=== PATIENT | male | born 1985 | race Hispanic/Latino ===

== ENCOUNTER 2021-08-18 04:25 | Inpatient (IN) | payer BC, OTHER ==
--- OUTSIDE RECORDS SUMMARY | 2021-08-18 04:28 | XMS REPORT | Continuity of Care Document ---
:1985 Author Organization [facility] t Address [address] [place] [address] Care Team Providers Name Role Phone Zuniga_F Attending Clinician Unavailable Zuniga_F Admitting Clinician Unavailable Payers Payer Name Policy Type Policy Number Effective Date Expiration Date S ource [place] [id number] 2018 00:00:00 [place] Problems Condition Condition Condition Status Onset Resolution Last Treating Co mments Source Name Details Category Date Date Treatment Clinician Date Decreased Decreased Problem Active [facility] testostero Testostero 3-19 da ne level ne Level 00:00: Medica l 00 Group Allergies, Adverse Reactions, Alerts This patient has no known allergies or adverse reactions. Social History Smoking Status Start Date Stop Date Source Never Smoker [facility] Medications Ordered Filled Start Stop Current Ordering Indication Dosage Frequency Signature Comments Components Source Medication Medication Date Date Medication? Clinician (SIG) Name Name clindamycin clindamycin No clindamyci [facility] phosphate 1 phosphate 1 n d a % topical % topical phosphate Medical solution solution 1 % Group APPLY A APPLY A topical THIN LAYER THIN LAYER solution TO THE TO THE APPLY A AFFECTED AFFECTED THIN LAYER AREA(S) BY AREA(S) BY TO THE TOPICAL TOPICAL AFFECTED ROUTE 2 ROUTE 2 AREA(S) BY TIMES PER TIMES PER TOPICAL DAY DAY ROUTE 2 TIMES PER DAY lisinopril lisinopril No lisinopril [facility] 10 mg 10 mg 10 mg da tablet TAKE tablet TAKE tablet Medical 1 TABLET BY 1 TABLET BY TAKE 1 Group MOUTH EVERY MOUTH EVERY TABLET BY DAY DAY MOUTH EVERY DAY montelukast montelukast No montelukas [facility] 10 mg 10 mg t 10 mg da tablet Take tablet Take tablet Medical 1 tablet 1 tablet Take 1 Group every day every day tablet by oral by oral every day route for route for by oral 30 days. 30 days. route for 30 days. testosteron testosteron No testostero [place] e cypionate e cypionate ne d a 200 mg/mL 200 mg/mL cypionate Medical intramuscul intramuscul 200 mg/mL Group ar oil ar oil intramuscu inject 2 ml inject 2 ml lar oil Intramuscul Intramuscul inject 2 ar Once ar Once ml Weekly Weekly Intramuscu lar Once Weekly Tylenol-Cod Tylenol-Cod No 1 Q6H Tylenol-Co [place] eine #3 300 eine #3 300 deine #3 da mg-30 mg mg-30 mg 300 mg-30 Me dical tablet Take tablet Take mg tablet Group 1 tablet 1 tablet Take 1 every 6 every 6 tablet hours by hours by every 6 oral route oral route hours by as needed as needed oral route for pain. for pain. as needed for pain. Ultram 50 Ultram 50 No 1 Q6H Ultram 50 [facility] mg tablet mg tablet mg tablet da Take 1 Take 1 Take 1 Medical tablet tablet tablet Group every 6 every 6 every 6 hours by hours by hours by oral route oral route oral route as needed as needed as needed for pain. for pain. for pain. Zofran 4 mg Zofran 4 mg No 1 Q6H Zofran 4 [facility] tablet Take tablet Take mg tablet da 1 tablet 1 tablet Take 1 Medic al every 6 every 6 tablet Group hours by hours by every 6 oral route oral route hours by as needed as needed oral route for nausea for nausea as needed and and for nausea vomiting. vomiting. and vomiting. Immunizations Ordered Immunization Filled Immunization Date Status Commen ts Source Name Name influenza, influenza, 2020-07-07 Completed [facility] injectable, injectable, 12:02:00 [facility] p quadrivalent, quadrivalent, preservative free preservative free influenza, influenza, 2019-10-01 Completed [facility] injectable, injectable, 15:58:14 [facility] quadrivalent, quadrivalent, preservative free preservative free Vital Signs Vital Name Observation Time Observation Value Comments Source BP Diastolic 2020-07-20 00:00:00 80 [facility]Hg[facility] Height 2020-07-20 00:00:00 70 [in_i] [facility] BMI (Body Mass 2020-07-20 00:00:00 32.4 kg/m2 [facility] 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 BP Systolic 2020-07-20 00:00:00 136 mm[Hg] [facility] Body Weight 2020-07-20 00:00:00 226 [lb_av] [facility] BP Diastolic 2020-07-07 00:00:00 90 mm[Hg] [facility] Height 2020-07-07 00:00:00 70 [in_i] [facility] BMI (Body Mass 2020-07-07 00:00:00 32.5 kg/m2 [facility] 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 BP Systolic 2020-07-07 00:00:00 144 mm[Hg] [facility] Body Weight 2020-07-07 00:00:00 3621 [oz_av] [facility] BP Diastolic 2019-10-01 00:00:00 78 mm[Hg] [facility] Height 2019-10-01 00:00:00 70 [in_i] [facility] BMI (Body Mass 2019-10-01 00:00:00 32.6 kg/m2 [facility] Medical Index) Group BP Systolic 2019-10-01 00:00:00 141 mm[Hg] [facility] Body Weight 2019-10-01 00:00:00 3638 [oz_av] [facility] BP Diastolic 2018-10-21 00:00:00 93 mm[Hg] [facility] Height 2018-10-21 00:00:00 70 [in_i] [facility] BMI (Body Mass 2018-10-21 00:00:00 31.7 kg/m2 [facility] Medical Index) Group BP Systolic 2018-10-21 00:00:00 143 mm[Hg] [facility] Body Weight 2018-10-21 00:00:00 3539 [oz_av] [facility] Procedures Procedure Date / Time Performed Performing Clinician Sourc e XR, chest 2019-10-01 00:00:00 [facility] 2010-09-17 00:00:00 [facility] K[facility] 2002-09-17 00:00:00 [facility] Encounters Start End Encounter Admission Attending Care Care Encounter Source Date/Time Date/Time Type Type Clinicians Facility Department ID 2020-08-04 2020-08-04 Outpatient [facility]F [facility] [id number] [facility] 02:21:00 02:21:00 [facility] 2020-07-21 2020-07-21 Outpatient [facility]F [facility] [id number] [facility] 11:48:00 11:48:00 [facility] 2020-07-20 2020-07-20 Outpatient [facility]_F [facility] [id number] [facility] 10:55:00 10:55:00 [facility] 2020-07-20 2020-07-20 Felipe [facility] [place] - [id number] [facility] 00:00:00 00:00:00 Jono Rodriguez MD: [facility] [address], [place] [address] , Ph. [phone] 2020-07-07 2020-07-07 Outpatient [facility]_F [facility] [id number] [place] 11:00:00 11:00:00 021 [facility] 2020-07-07 2020-07-07 Outpatient Zuniga_F [facility] [id number] [place] 11:00:00 11:00:00 022 [facility] 2020-07-07 2020-07-07 [facility] [place] - [id number] [facility] 00:00:00 00:00:00 [facility] : [address] [place] [address] Family [address], [place] [address] , Ph. 2020-07-01 2020-07-01 Outpatient Z[facility]_F [facility] [id number] [place] 06:45:00 06:45:00 015 [facility] 2019-10-01 2019-10-01 Outpatient Zuniga_F [facility] MMG [id number] [facility] 08:12:00 08:12:00 115 [facility] 2019-10-01 2019-10-01 [facility] [place] - [id number] [facility] 00:00:00 00:00:00 [facility] MD: [address] [facility] Family [address], [place] [address] , Ph. 2018-10-21 2018-10-21 Cap[facility] [place] - [id number] [facility] 00:00:00 00:00:00 N[facility] MD: [address] [facility], [facility] [address], [place] [address] , Ph. Results Test Description Test Time Test Comments Results Result Comments Source CBC W Auto Differential panel - Blood 2020-07-07 09:08:00 Test Item Value Reference Range Interpretation Comme nts white blood count (test code = white blood count) 6.5 K/uL 4.0- 12.3 red blood count (test code = red blood count) 5.27 M/uL 3.80-5.8 0 hemoglobin (test code = hemoglobin) 15.4 g/dL 11.7-17.2 hematocrit (test code = hematocrit) 45.9 % 35.0-51.0 MCV [Entitic volume] (test code = 88146-2) 87.1 fL 83-100 mean corpuscular hemoglobin (test code = mean corpuscular 29.2 pg 26.8-33.4 hemoglobin) mean corpuscular HGB conc (test code = mean corpuscular HGB 33.6 g/ dL 30-35 conc) red cell distribution width (test code = red cell 13.2 % 12.0 -14.0 distribution width) platelet count (test code = platelet count) 349 K/uL 175-450 mean platelet volume (test code = mean platelet volume) 9.6 fL 9.4-12.6 Segmented neutrophils/100 leukocytes in Blood (test code = 61.6 % 44.7-82.4 53793-3) Immature granulocytes [#/volume] in Blood (test code = 0.0 K/uL 0.0-0.03 82174-4) lymphocyte% (test code = lymphocyte%) 24.8 % 10.0-50.0 mono % (test code = mono %) 10.8 % 3.9-13.4 eos % (test code = eos %) 1.8 % 0.0-6.4 Basophils/100 leukocytes in Unspecified specimen (test code 0.8 % 0.2-1.2 = 94322-3) Band form neutrophils [#/volume] in Blood (test code = 4.01 K/uL 1.78-5.38 32305-0) Lymphocytes [#/volume] in Unspecified specimen by Automated 1.6 K/u L 1.32-3.57 count (test code = 85834-5) mono # (test code = mono #) 0.70 K/uL 0.30-0.82 eos # (test code = eos #) 0.12 K/uL 0.04-0.54 basophil # (test code = basophil #) 0.05 K/uL 0.01-0.08 NRBC% (test code = NRBC%) 0 /100 WBC 0-0.2 NRBC# (test code = NRBC#) 0 K/uL [facility], method unspecified - [id number] 09:08:00NeutrophilsBandLymphocyteAtypical LymphMonocyteBasophilPlatelet EstimatePlatelet MorphologyMacrocytosisMaWalthall County General HospitalComprehensive metabolic 2000 panel - Serum or [id number] 09:08:00 Test Item Value Reference Range Interpretation Comments glucose (test code = glucose) 91 mg/dL 74-106 Urea nitrogen [Mass/volume] in 22 mg/dL 6-20 H Serum or Plasma (test code = 3094-0) osmolality calculated,serum (test 281 mOsm/kg 280-300 code = osmolality calculated,serum) creatinine (test code = 1.3 mg/dL 0.70-1.20 H creatinine) glomerular filtration rate (test >60.00 code = glomerular filtration rate) Urea nitrogen/Creatinine [Mass 16.9 12-20 Ratio] in Serum or Plasma (test code = 3097-3) sodium level (test code = sodium 139 mmol/L 135-145 level) Potassium [Moles/volume] in Body 3.8 mmol/L 3.5-5.2 fluid (test code = 2821-7) chloride level (test code = 102 mmol/L 98-108 chloride level) CO2 (test code = CO2) 25 mmol/L 21-32 anion gap (test code = anion gap) 15.8 mEq/L 12-20 calcium level (test code = 9.7 mg/dL 8.6-10.0 calcium level) total protein (test code = total 7.6 g/dL 6.6-8.7 protein) albumin (test code = albumin) 4.6 g/dL 3.5-5.2 globulin (test code = globulin) 3.0 gm/dL A/G ratio (test code = A/G ratio) 1.5 >1.0 bilirubin,total (test code = 0.9 mg/dL 0.0-1.2 bilirubin,total) AST/SGOT (test code = AST/SGOT) 25 U/L 15-40 Alanine aminotransferase 32 U/L 0-41 [Enzymatic activity/volume] in Serum or Plasma (test code = 1742-6) Alkaline phosphatase [Enzymatic 72 U/L 40-130 activity/volume] in Serum or Plasma (test code = 6768-6) [facility] - Serum or [id number] 09:08:00 Test Item Value Reference Range Interpretation Comments cholesterol level (test code = 218 mg/dL 150-200 H cholesterol level) triglycerides level (test code = 72 mg/dL <150 triglycerides level) HDL cholesterol (test code = HDL 52 mg/dL >55 L cholesterol) LDL cholesterol direct (test code = 156 mg/dL <100 H LDL cholesterol direct) cholesterol risk ratio (test code = 4.192 cholesterol risk ratio) [facility]rotropin [Units/volume] in Serum or [id number] 09:08:00 Test Item Value Reference Range Interpretation Comments Thyrotropin [Units/volume] in 1.99 uIU/mL 0.36-3.74 Serum or Plasma (test code = 3016-3) [facility] [Mass/volume] in Serum or [id number] 09:08:00 Test Item Value Reference Range Interpretation Comments testosterone (test code = 125.7 NG/dL 348-[address]7 L testosterone) [facility]
[2021-08-18] MEDS ORDERED: NA CHLORIDE 0.9% 2,000 ML ONE (04:46)
[2021-08-18 04:55] LABS: Absolute Lymphocytes (CBC) 1.1 K/uL (0.7-4.9); Basophils % 0.6 % (0-1.3); Hematocrit 58.8 % (39.6-49.0); Lymphocytes % 9.6 % (15.3-44.8); MPV 7.9 fL (7.6-11.3); RBC Red Blood Cell Count 6.74 M/uL (4.33-5.43)
[2021-08-18 05:25] LABS: Bilirubin Direct 0.2 mg/dL (0-0.2); Bilirubin Total 0.8 mg/dL (0.2-1.0); Potassium 3.5 mmol/L (3.5-5.1); Protein, Total 8.6 g/dL (6.4-8.2)
[2021-08-18] MEDS ORDERED: NA CHLORIDE 0.9% 1,000 ML ONE (05:47)
[2021-08-18] MEDS ORDERED: ONDANSETRON 4 MG/2 ML VIAL ONE (05:47)
[2021-08-18 06:18] LABS: Troponin (Emerg Dept Use Only) 0.1 ng/mL (0.0-0.045)
--- NOTE | 2021-08-18 06:40 | ER ---
Nurse's Notes [facility] Name: Reggie Anton Age: 36 yrs Sex: Male : 1985 Arrival Date: 08/18/2021 Time: 04:31 Bed 2 Private MD: Diagnosis: Persistent diarrhea. Dehydration. Elevated Troponin Presentation: 08/18 04:51 Chief complaint: Patient states: Diarrhea that began at 1200 yesterday, generalized lp1 weakness, abdominal distention and epigastric pain. Coronavirus screen: diarrhea. Ebola Screen: No symptoms or risks identified at this time. Initial Sepsis Screen: Does the patient meet any 2 criteria? No. Patient's initial sepsis screen is negative. Does the patient have a suspected source of infection? No. Patient's initial sepsis screen is negative. Risk Assessment: Do you want to hurt yourself or someone else? Patient reports no desire to harm self or others. Onset of symptoms was August 17, 2021 at 12:00. 04:51 Method Of Arrival: Ambulatory lp1 04:51 Acuity: KAMRAN 2 lp1 Triage Assessment: 04:54 General: Appears ill, Behavior is quiet. Derm: Skin is intact, Skin is diaphoretic, lp1 Skin is pale. Historical: - Allergies: 04:53 No Known Allergies; lp1 - Home Meds: 04:53 Lisinopril Oral [Active]; lp1 - PMHx: 04:53 Hypertensive disorder; lp1 - PSHx: 04:53 ACL repair; lp1 - Immunization history:: Adult Immunizations up to date. - Social history:: Smoking status: Patient denies any tobacco usage or history of. Screenin:54 Abuse screen: Denies threats or abuse. Denies injuries from another. Nutritional lp1 screening: No deficits noted. Tuberculosis screening: No symptoms or risk factors identified. Fall Risk Total Brooks Fall Scale indicates Low Risk Score (25-44 pts). Fall prevention measures have been instituted. Family Present and informed to notify staff if they need to leave bedside. Assessment: 04:35 General: Appears distressed, uncomfortable, Behavior is cooperative, anxious. Pain: cc4 Complains of pain in epigastric area Pain radiates to abdomen Pain currently is 4 out of 10 on a pain scale. Quality of pain is described as crampy. Neuro: No deficits noted. Level of Consciousness is awake, alert, obeys commands, Oriented to person, place, time, situation. Cardiovascular: Heart tones S1 S2 Rhythm is sinus tachycardia. Respiratory: Airway is patent Respiratory effort is even, unlabored, Respiratory pattern is regular, symmetrical, tachypnea Breath sounds are clear bilaterally. GI: Abdomen is non-distended, Bowel sounds present X 4 quads. hyperactive in right upper quadrant, left upper quadrant, right lower quadrant and left lower quadrant. : No deficits noted. EENT: No deficits noted. Derm: No deficits noted. Skin is intact, is healthy with good turgor. Musculoskeletal: Reports weakness in head, neck, chest, abdomen, pelvis, right arm, left arm, left hand, right leg, right foot, left leg and left foot c/o generalized weakness. 04:40 Reassessment: # 18 g angiocath inserted right AC x 1 attempt with no difficulty \T\ blood cc4 drawn \T\ sent to lab, [facility]. [facility]. . 05:15 Reassessment: # 18 g angiocath inserted left AC x 1 attempt with blood drawn \T\ sent to cc4 lab, [facility]. well; swabbed for covid \T\ sent to lab. 05:45 Reassessment: No changes from previously documented assessment. Assisted up to [facility] cc4 with approx 100 ml Emmanuel liquid stool noted in nun's cap; stool specimen collected \T\ sent to lab; IV NS patent right AC saline lock \T\ bolus rate with no difficulty. 07:00 Reassessment: No changes from previously documented assessment. Patient and/or family ll1 updated on plan of care and expected duration. Pain level reassessed. Patient is alert, oriented x 3, equal unlabored respirations, skin warm/dry/pink. 08:00 Reassessment: No changes from previously documented assessment. Patient and/or family ll1 updated on plan of care and expected duration. Pain level reassessed. Patient is alert, oriented x 3, equal unlabored respirations, skin warm/dry/pink. 08:07 GI: Abdomen is non-distended, Bowel sounds present X 4 quads. Abd is soft Abdomen is ll1 tender to palpation Reports diarrhea, nausea. 09:00 Reassessment: No changes from previously documented assessment. Patient and/or family ll1 updated on plan of care and expected duration. Pain level reassessed. Patient is alert, oriented x 3, equal unlabored respirations, skin warm/dry/pink. 10:00 Reassessment: No changes from previously documented assessment. Patient and/or family ll1 updated on plan of care and expected duration. Pain level reassessed. Patient is alert, oriented x 3, equal unlabored respirations, skin warm/dry/pink. Vital Signs: 04:35 BP 103 / 86; Pulse 144; Resp 23; Temp 99.1; Pulse Ox 98% on R/A; cc4 04:51 BP 103 / 86; Pulse 148; Resp 20; Temp 99.1(O); Pulse Ox 97% on R/A; Weight 106.59 kg; lp1 Height 5 ft. 10 in. (177.80 cm); Pain 5/10; 05:00 BP 111 / 72; Pulse 122; Resp 24 S; Pulse Ox 98% on R/A; cc4 05:30 BP 116 / 83; Pulse 112; Resp 23 S; Pulse Ox 99% on R/A; cc4 06:00 BP 117 / 82; Pulse 131; Resp 23 S; Pulse Ox 98% on R/A; cc4 06:30 BP 119 / 66; Pulse 129; Resp 21 S; Pulse Ox 99% on R/A; cc4 06:46 BP 111 / 60; Pulse 125; Resp 22 S; Pulse Ox 98% on R/A; cc4 07:27 Pulse 115; ll1 07:34 BP 103 / 65; Pulse 113; Resp 22; Temp 99.3; Pulse Ox 96% on R/A; ll1 09:58 BP 101 / 77; Pulse 103; Resp 21; Pulse Ox 98% on R/A; ll1 04:51 Body Mass Index 33.72 (106.59 kg, 177.80 cm) lp1 ED Course: 04:31 Patient arrived in ED. bp1 04:48 Michael Sanchez MD is Attending Physician. pkl 04:53 Triage completed. lp1 04:53 Arm band placed on right wrist. lp1 04:54 Patient has correct armband on for positive identification. Placed in gown. Bed in low lp1 position. electric utility lineworker on. Pulse ox on. NIBP on. 04:55 Inserted saline lock: 18 gauge in right antecubital area, using aseptic technique. lp1 Blood collected. By HANNAH Yang. 04:57 D-Dimer Sent. bb 04:58 Basic Metabolic Panel Sent. bb 04:58 CBC with Diff Sent. bb 04:58 Hepatic Function Sent. bb 04:58 Lipase Sent. bb 04:58 No provider procedures requiring assistance completed. bb 05:35 XRAY CXR (1 view) In Process Unspecified. EDMS 06:01 Veda Elaine, RN is Primary Nurse. cc4 06:02 Troponin (Emerg Dept Use Only) Sent. cc4 06:02 Manual Differential Sent. cc4 06:03 Glucose, Ancillary Testing Sent. cc4 06:03 Stool Culture Sent. cc4 06:03 D-Dimer Sent. cc4 06:03 Blood Culture Adult (2) Sent. cc4 06:03 Lactate Sent. cc4 06:03 Lipase Sent. cc4 06:03 Hepatic Function Sent. cc4 06:03 CBC with Diff Sent. cc4 06:03 Basic Metabolic Panel Sent. cc4 06:37 Jessica Mccallum MD is Hospitalizing Provider. pkl 06:57 Abdomen Sent. cc4 07:16 Notified the Hospitalist of a critical lab result(s), D dimer 2534. ll1 10:02 Patient admitted, IV remains in place. ll1 Administered Medications: 04:51 Drug: NS 0.9% 1000 ml Route: IV; Rate: 1 bolus; Site: right antecubital; lp1 10:02 Follow up: Response: No adverse reaction; IV Status: Completed infusion; IV Intake: ll1 1000ml 06:04 Drug: Zofran (Ondansetron) 4 mg Route: IVP; Site: right antecubital; cc4 10:03 Follow up: Response: No adverse reaction ll1 06:15 Drug: NS 0.9% 1000 ml Route: IV; Rate: 1 bolus; Site: right antecubital; cc4 09:41 Follow up: Response: No adverse reaction; IV Status: Completed infusion; IV Intake: ll1 1000ml Intake: 09:41 IV: 1000ml; Total: 1000ml. ll1 10:02 IV: 1000ml; Total: 2000ml. ll1 Outcome: 06:39 Decision to Hospitalize by Provider. pkl 10:01 Admitted to Med/surg accompanied by tech, via wheelchair, with chart, Report called to ll Giulia D. 10:01 Condition: stable 10:01 Instructed on the need for admit. 10:19 Patient left the ED. ll1 Signatures: Dispatcher [employer] EDMS Michael Sanchez MD MD pkRegina Bullock RN RN bb Kathy Flood RN RN lp1 Peri Donald RN RN ll1 Slime Powell Christie RN RN cc4 Corrections: (The following items were deleted from the chart) 04:55 04:51 BP 103 / 86; Pulse 148bpm; Resp 20bpm; Pulse Ox 97% RA; 106.59 kg; Height 5 ft. lp1 10 in.; BMI: 33.7; Pain 5/10; lp1 05:55 04:57 TROPONIN (EMERG DEPT USE ONLY)+C.LAB.RHEAZ drawn and sent. randi EDMS 06:46 06:03 To radiology for Abdomen Pelvis W Con+CT.RAD.BRZ. cc4 EDMS
--- NOTE | 2021-08-18 06:40 | EDPHYS ---
Physician Documentation [facility] Name: Reggei Anton Age: 36 yrs Sex: Male : 1985 Arrival Date: 08/18/2021 Time: 04:31 Bed 2 Private MD: ED Physician Michael Sanchez HPI: 08/18 05:16 This 36 yrs old Male presents to ER via Ambulatory with complaints of pkl Diarrhea, Nausea, Weakness. 05:16 The patient presents to the emergency department with nausea, that is mild, diarrhea, pkl that is intermittent, 8 times since the onset of symptoms. Onset: The symptoms/episode began/occurred yesterday. Possible causes: unknown. Associated signs and symptoms: Pertinent positives: abdominal pain, abdominal distention. Historical: - Allergies: 04:53 No Known Allergies; lp1 - Home Meds: 04:53 Lisinopril Oral [Active]; lp1 - PMHx: 04:53 Hypertensive disorder; lp1 - PSHx: 04:53 ACL repair; lp1 - Immunization history:: Adult Immunizations up to date. - Social history:: Smoking status: Patient denies any tobacco usage or history of. ROS: 05:16 Eyes: Negative for injury, pain, redness, and discharge, ENT: Negative for injury, pkl pain, and discharge, Neck: Negative for injury, pain, and swelling, Cardiovascular: Negative for chest pain, palpitations, and edema. 05:16 Respiratory: Positive for shortness of breath. 05:16 Abdomen/GI: Positive for abdominal pain, nausea, diarrhea, of the epigastric area. 05:16 Back: Negative for acute changes. 05:16 : Negative for urinary symptoms. 05:16 MS/extremity: Negative for acute changes. 05:16 Skin: Negative for rash. 05:16 Neuro: Negative for altered mental status, loss of consciousness. Exam: 05:16 Head/Face: Normocephalic, atraumatic. Eyes: Pupils equal round and reactive to light, pkl extra-ocular motions intact. Lids and lashes normal. Conjunctiva and sclera are non-icteric and not injected. Cornea within normal limits. Periorbital areas with no swelling, redness, or edema. ENT: Nares patent. No nasal discharge, no septal abnormalities noted. Tympanic membranes are normal and external auditory canals are clear. Oropharynx with no redness, swelling, or masses, exudates, or evidence of obstruction, uvula midline. Mucous membranes moist. Neck: Trachea midline, no thyromegaly or masses palpated, and no cervical lymphadenopathy. Supple, full range of motion without nuchal rigidity, or vertebral point tenderness. No Meningismus. Chest/axilla: Normal chest wall appearance and motion. Nontender with no deformity. No lesions are appreciated. 05:16 Cardiovascular: Rate: tachycardic, actual rate is 148 bpm, Rhythm: regular. 05:16 ECG was reviewed by the Attending Physician. 05:16 Respiratory: the patient does not display signs of respiratory distress, Respirations: normal, Breath sounds: are clear throughout. 05:16 Abdomen/GI: Bowel sounds: active, Palpation: mild abdominal tenderness, in all quadrants. 05:16 Back: Exam negative for acute changes. 05:16 : Exam negative for acute changes. 05:16 Musculoskeletal/extremity: Exam is negative for acute changes. 05:16 Skin: Exam negative for rash. 05:16 Neuro: Orientation: is normal, Mentation: is normal, Cranial nerves: grossly normal, Motor: is normal. Vital Signs: 04:35 BP 103 / 86; Pulse 144; Resp 23; Temp 99.1; Pulse Ox 98% on R/A; cc4 04:51 BP 103 / 86; Pulse 148; Resp 20; Temp 99.1(O); Pulse Ox 97% on R/A; Weight 106.59 kg; lp1 Height 5 ft. 10 in. (177.80 cm); Pain 5/10; 05:00 BP 111 / 72; Pulse 122; Resp 24 S; Pulse Ox 98% on R/A; cc4 05:30 BP 116 / 83; Pulse 112; Resp 23 S; Pulse Ox 99% on R/A; cc4 06:00 BP 117 / 82; Pulse 131; Resp 23 S; Pulse Ox 98% on R/A; cc4 06:30 BP 119 / 66; Pulse 129; Resp 21 S; Pulse Ox 99% on R/A; cc4 06:46 BP 111 / 60; Pulse 125; Resp 22 S; Pulse Ox 98% on R/A; cc4 07:27 Pulse 115; ll1 07:34 BP 103 / 65; Pulse 113; Resp 22; Temp 99.3; Pulse Ox 96% on R/A; ll1 09:58 BP 101 / 77; Pulse 103; Resp 21; Pulse Ox 98% on R/A; ll1 04:51 Body Mass Index 33.72 (106.59 kg, 177.80 cm) lp1 MDM: 04:48 Patient medically screened. pkl 06:35 Data reviewed: vital signs, nurses notes, lab test result(s), EKG, radiologic studies, pkl plain films. ED course: Talked to Dr. Mccallum for observation. 08/18 04:45 Order name: Basic Metabolic Panel; Complete Time: 06:22 bb 08/18 04:45 Order name: CBC with Diff; Complete Time: 07:12 bb 08/18 04:45 Order name: Hepatic Function; Complete Time: 06:22 bb 08/18 04:45 Order name: Lipase; Complete Time: 06:22 bb 08/18 04:55 Order name: Lactate; Complete Time: 06:22 pkl 08/18 04:56 Order name: Blood Culture Adult (2) pkl 08/18 04:56 Order name: D-Dimer; Complete Time: 07:12 pkl 08/18 04:56 Order name: Stool Culture pkl 08/18 04:59 Order name: Glucose, Ancillary Testing EDMS 08/18 04:59 Order name: Glucose, Ancillary Testing; Complete Time: 05:12 EDMS 08/18 05:12 Order name: Manual Differential; Complete Time: 07:12 EDMS 08/18 05:55 Order name: Troponin (Emerg Dept Use Only); Complete Time: 06:22 EDMS 08/18 04:55 Order name: EKG; Complete Time: 04:56 pkl 08/18 04:55 Order name: XRAY CXR (1 view) pkl 08/18 06:15 Order name: SARS-COV-2 RT PCR; Complete Time: 07:12 EDMS 08/18 06:47 Order name: Abdomen EDMS 08/18 07:38 Order name: CREATININE WHOLE BLOOD EDMS 08/18 08:47 Order name: CBC with Automated Diff EDMS 08/18 08:47 Order name: CBC with Automated Diff EDMS 08/18 08:47 Order name: Comprehensive Metabolic Panel EDMS 08/18 08:47 Order name: Comprehensive Metabolic Panel EDMS 08/18 08:48 Order name: C.difficile GDH Ag EDMS 08/18 08:48 Order name: Fecal Leukocyte Stain EDMS 08/18 08:48 Order name: Ova and Parasites EDMS 08/18 04:45 Order name: IV Saline Lock; Complete Time: 04:58 08/18 04:45 Order name: Labs collected and sent; Complete Time: 06:03 08/18 08:47 Order name: Heart Healthy EDMS Administered Medications: 04:51 Drug: NS 0.9% 1000 ml Route: IV; Rate: 1 bolus; Site: right antecubital; lp1 10:02 Follow up: Response: No adverse reaction; IV Status: Completed infusion; IV Intake: ll1 1000ml 06:04 Drug: Zofran (Ondansetron) 4 mg Route: IVP; Site: right antecubital; cc4 10:03 Follow up: Response: No adverse reaction ll1 06:15 Drug: NS 0.9% 1000 ml Route: IV; Rate: 1 bolus; Site: right antecubital; cc4 09:41 Follow up: Response: No adverse reaction; IV Status: Completed infusion; IV Intake: ll1 1000ml Disposition Summary: 08/18/21 06:39 Hospitalization Ordered Hospitalization Status: Observation pkl Provider: Jessica Mccallum pkitz Location: Telemetry/MedSurg (observation) pkl Condition: Stable pkl Problem: new pkl Symptoms: are unchanged pkl Bed/Room Type: Standard pkl Room Assignment: 404(08/18/21 09:36) iw Diagnosis - Persistent diarrhea. Dehydration. Elevated Troponin pkl Forms: - Medication Reconciliation Form pkl - SBAR form pkl Signatures: Dispatcher [employer] EDMS Michael Sanchez MD MD pkl Desmond King PA PA jmm Ballard, Brenda, RN RN bb Rosalie Valdivia RN RN iw Kathy Flood RN RN lp1 Veda Elaine RN RN cc4 Peri Donald RN ll1 Corrections: (The following items were deleted from the chart) 05:55 04:56 TROPONIN (EMERG DEPT USE ONLY)+C.LAB.BRZ ordered. EDMS EDMS 06:46 04:57 Abdomen Pelvis W Con+CT.RAD.BRZ ordered. EDMS EDMS 09:36 06:39 pkl iw
[2021-08-18 07:03] LABS: Blood Morphology Comment NOT SEEN (NOT SEEN); Platelet Estimate ADEQ
--- NOTE | 2021-08-18 08:11 | RAD REPORT ---
EXAM DESCRIPTION: RAD - Chest Single View - 08/18/2021 5:36 am CLINICAL HISTORY: SOB COMPARISON: None TECHNIQUE: AP portable chest image was obtained 08/18/2021 5:36 am . FINDINGS: Lungs are clear. Heart and vasculature are normal. No measurable pleural effusion and no p neumothorax. No acute bony abnormality seen. No acute aortic findings suspected. IMPRESSION: No acute cardiopulmonary process.
[2021-08-18] MEDS ORDERED: ONDANSETRON 4 MG/2 ML VIAL IV PRN (08:45)
[2021-08-18] MEDS ORDERED: ACETAMINOPHEN 500 MG TAB PO PRN (08:45)
--- NOTE | 2021-08-18 09:31 | RAD REPORT ---
EXAM DESCRIPTION: CT - Abdomen Pelvis Wo Contrast - 08/18/2021 9:01 am CLINICAL HISTORY: diarrhea;Abdominal distention COMPARISON: No comparisons TECHNIQUE: Axial [address] imaging of the abdomen and pelvis was performed without IV contrast. No IV contrast was given because of allergy, abnormal renal function, patient refusal or physician re quest. Oral contrast was given. All CT scans are performed using dose optimization technique as appropriate and may include automated exposure control or mA/KV adjustment according to patient size. FINDINGS: No suspicious findings in the lung bases. The liver, spleen and pancreas show no suspicious findings on non-contrast imaging. Gallbladder and b iliary tree are also without suspicious finding. Gallstones can be occult on CT imaging. No hydronephrosis or suspicious renal mass. No hydronephrosis is present. No obstructing or nonobstru cting calculi seen. There is minimal hyperdensity within the urinary bladder and the calices. Patient may have received a test injection of contrast. Blood within the collecting system is not likely but can be correlated with any UA abnormalities. No significant adrenal finding. Isodense renal masses a nd pyelonephritis cannot be excluded in the absence of IV contrast. No bladder wall thickening or mas s. No dilated bowel loops or bowel wall thickening. No appendicitis findings. Liquid stool is present in the:. Small mesenteric lymph nodes are present. No free air, free fluid or inflammatory stranding. N o hernia, mass or bulky lymphadenopathy. No suspicious bony findings. IMPRESSION: No obstruction, free air or surgically emergent finding identified. Small mesenteric lym ph nodes and mildly prominent small bowel pattern likely indicates a nonspecific enteritis. Full assessment is limited is the absence of IV contrast.
[2021-08-18 10:31] VITALS: BMI 33.7
[2021-08-18] MEDS: NA CHLORIDE 0.9% 1,000 ML IV SCH ×2 (10:52→16:49)
[2021-08-18] MEDS: LOPERAMIDE HCL 2 MG CAPSULE PO PRN ×2 (16:49→20:26)
--- NOTE | 2021-08-18 18:13 | P.HP ---
Certification for Inpatient Patient admitted to: Observation With expected LOS: <2 Midnights Patient will require the following post-hospital care: None Practitioner: I am a practitioner with admitting privileges, knowledge of patient current condition, hospital course, and medical plan of care. Services: Services provided to patient in accordance with Admission requirements found in Title 42 Section 412.3 of the Code of Federal Regulations Patient History Date of Service: 08/18/21 Reason for admission: Viral gastroenteritis with persistent diarrhea History of Present Illness: PATIENT IS A 36-YEAR-OLD GENTLEMAN WHO CAME TO THE HOSPITAL WITH PERSISTENT DIARRHEA. PATIENT STATES THE DIARRHEA STARTED ABOUT 48 HR AGO. PATIENT'S DIARRHEA HAS BEEN PERSISTENT. HE ATE AT A LOCAL RESTAURANT AND THE FOLLOWING DAY HE WAS HAVING NAUSEA AND THEN THE DIARRHEA STARTED. NO BLOODY STOOLS. HE HAS HAD FEVER, SHAKES, AND CHILLS. PATIENT BE ADMITTED FOR IV HYDRATION AT THIS TIME. Allergies No Known Allergies Allergy (Unverified 08/18/21 07:42) Home Medications: Lisinopril [Zestril] 1 tab PO DAILY 08/18/21 - Past Medical/Surgical History Has patient received pneumonia vaccine in the past: No Diabetic: No -: HTN -: ACL Sx Right Knee - Family History Father Medical History: Hypertension Mother Medical History: Hypertension - Social History Smoking Status: Never smoker Alcohol use: Yes CD- Drugs: No Caffeine use: Yes Place of Residence: Home Review of Systems 10-point ROS is otherwise unremarkable Physical Examination - Vital Signs Temperature: 98.2 F Blood Pressure: 120/68 Pulse: 74 Respirations: 16 Pulse Ox (%): 98 - Physical Exam General: Alert, In no apparent distress, Oriented x3 HEENT: Atraumatic, PERRLA, Mucous membr. moist/pink, EOMI, Sclerae nonicteric Neck: Supple, 2+ carotid pulse no bruit, No LAD, Without JVD or thyroid abnormality Respiratory: Clear to auscultation bilaterally, Normal air movement Cardiovascular: Regular rate/rhythm, Normal S1 S2 Gastrointestinal: Normal bowel sounds, Soft and benign, No tenderness, No masses, No rebound, No guarding Musculoskeletal: No tenderness Integumentary: No rashes Neurological: Normal gait, Normal speech, Normal strength at 5/5 x4 extr, Normal tone, Normal affect Lymphatics: No axilla or inguinal lymphadenopathy - Studies Laboratory Data (last 24 hrs) 08/18/21 04:52: WBC 10.90, Hgb 19.8 H, Hct 58.8 H, Plt Count 266 08/18/21 04:52: Sodium 140, Potassium 3.5, BUN 25 H, Creatinine 2.25 H, Glucose 128 H, Total Bilirubin 0.8, AST 24, ALT 53, Alkaline Phosphatase 78, Lipase 112 Assessment & Plan - Problems (Diagnosis) (1) Viral gastroenteritis Current Visit: Yes Status: Acute - Plan 1. Continue with IV hydration 2. Continue with IV anti-inflammatory 3. Continue with pain control; anti diarrheal medication 4. Advanced diet as tolerated 5. outpatient GI follow-up 6. Monitor labs closely. 7. GI and DVT prophylaxis Discharge Plan: Home Plan to discharge in: Greater than 2 days - Advance Directives Does patient have a Living Will: No Does patient have a Durable POA for Healthcare: No - Code Status/Comfort Care Code Status Assessed: Yes Code Status: Full Code Critical Care: No Time Spent Managing PTS Care (In Minutes): 35
[2021-08-18] MEDS: MORPHINE 2 MG/ML SYR IV PRN (21:02)
[2021-08-19] MEDS: NA CHLORIDE 0.9% 1,000 ML IV SCH ×3 (01:02→16:14)
[2021-08-19] MEDS: MORPHINE 2 MG/ML SYR IV PRN (04:53)
[2021-08-19] MEDS: LOPERAMIDE HCL 2 MG CAPSULE PO PRN ×3 (04:58→19:54)
[2021-08-19 05:11] LABS: Absolute Lymphocytes (CBC) 0.9 K/uL (0.7-4.9); Basophils % 0.3 % (0-1.3); Hematocrit 46.6 % (39.6-49.0); MPV 8.4 fL (7.6-11.3); RBC Red Blood Cell Count 5.37 M/uL (4.33-5.43)
[2021-08-19 05:31] LABS: Albumin 2.7 g/dL (3.4-5.0); Bilirubin Total 0.5 mg/dL (0.2-1.0); Protein, Total 6.4 g/dL (6.4-8.2)
[2021-08-19 05:33] LABS: Potassium 3.6 mmol/L (3.5-5.1)
[2021-08-19] MEDS ORDERED: HYDROCORTISONE SUC 100 MG INJ IV ONE (10:32)
[2021-08-19 12:46] LABS: C.diff Antigen/Toxin Ag neg : Tox neg (NEG : NEG)
--- NOTE | 2021-08-19 17:13 | P.PN ---
Subjective Date of Service: 08/19/21 Patient is clinically improving; but LFTs are elevated and troponin slightly elevated; check hepatitis panel Review of Systems 10-point ROS is otherwise unremarkable Physical Examination - Vital Signs Temperature: 97.9 F Blood Pressure: 127/77 Pulse: 80 Respirations: 18 Pulse Ox (%): 98 - Physical Exam General: Alert, In no apparent distress HEENT: Atraumatic, PERRLA, EOMI Neck: Supple, JVD not distended Respiratory: Clear to auscultation bilaterally, Normal air movement Cardiovascular: Regular rate/rhythm, Normal S1 S2 Gastrointestinal: Normal bowel sounds, No tenderness Musculoskeletal: No tenderness Integumentary: No rashes Neurological: Normal speech, Normal tone, Normal affect Lymphatics: No axilla or inguinal lymphadenopathy - Studies Medications List Reviewed: Yes Assessment & Plan - Problems (Diagnosis) (1) Viral gastroenteritis Current Visit: Yes Status: Acute (2) Elevated LFTs Current Visit: Yes Status: Acute (3) Elevated troponin Current Visit: Yes Status: Acute - Plan 1. Continue with IV hydration 2. Continue with IV anti-inflammatory 3. Continue with pain control; anti diarrheal medication 4. Advanced diet as tolerated 5. outpatient GI follow-up 6. Monitor labs closely. 7. GI and DVT prophylaxis - Advance Directives Does patient have a Living Will: No Does patient have a Durable POA for Healthcare: No - Code Status/Comfort Care Code Status: Full Code
[2021-08-19 17:55] LABS: Albumin 2.8 g/dL (3.4-5.0); Bilirubin Direct 0.1 mg/dL (0-0.2); Bilirubin Total 0.3 mg/dL (0.2-1.0); Potassium 3.8 mmol/L (3.5-5.1); Protein, Total 6.5 g/dL (6.4-8.2); Troponin I 0.26 ng/mL (0.0-0.045)
[2021-08-20] MEDS: MORPHINE 2 MG/ML SYR IV PRN (00:15)
[2021-08-20] MEDS: NA CHLORIDE 0.9% 1,000 ML IV SCH ×2 (00:34→08:07)
[2021-08-20 09:43] VITALS: O2SAT 100
[2021-08-20 11:35] LABS: Basophils % 0.6 % (0-1.3); Hematocrit 43.5 % (39.6-49.0); RBC Red Blood Cell Count 5.06 M/uL (4.33-5.43)
[2021-08-20 11:48] LABS: Albumin 2.8 g/dL (3.4-5.0); Bilirubin Total 0.5 mg/dL (0.2-1.0); Magnesium 1.9 mg/dL (1.8-2.4); Potassium 3.5 mmol/L (3.5-5.1); Protein, Total 6.3 g/dL (6.4-8.2); Troponin I 0.19 ng/mL (0.0-0.045)
[2021-08-20 13:25] VITALS: BP 125/79; TEMP 97.9
== END 2021-08-20 12:45 | disposition home or self-care (01) | DRG 392 ==
LOC: ER 04:25 → ERHOLD 08:46 → 4TH 10:16 → OBSVTOIN 22:30
PROVIDERS: ADMIT Hospitalist; ATTEND Hospitalist
DX: A08.4 Viral intestinal infection, unspecified (principal); E86.0 Dehydration; I10 Essential (primary) hypertension; R77.8 Other specified abnormalities of plasma proteins; R94.5 Abnormal results of liver function studies; Z79.899 Other long term (current) drug therapy; Z20.822 Contact with and (suspected) exposure to COVID-19
CPT/HCPCS: 36415; 71045; 74176; 80048; 80053; 80074; 80076; 82565; 82947; 83605; 83690; 83735; 84484; 85025; 85379; 87040; 87045; 87046; 87324; 87449; 93005; 96361; 96374; 99285; G0378; J1720; J2270; J2405; J7030; U0003

== ENCOUNTER 2025-01-18 15:07 | Emergency (ER) | payer BC ==
--- OUTSIDE RECORDS SUMMARY | 2025-01-18 15:18 | XMS REPORT | Continuity of Care Document ---
Author Name Unknown Address [address] [place] [address] 1 [address] [place] [address] [facility] Address [address] [facility] [address] [place] [address] Care Team Providers Care Dry Cleaning Counter Clerk Name Role Phone Deepak_F Attending Clinician Unavailable Bettye Attending Clinician Unavailable ALIYA BRANDT Attending Clinician Unavailab Capo Ward Attending Clinician Unavailab Nj Covarrubias I. Attending Clinician Unavailmalathi Sotelo_F Admitting Clinician Unavailable Bettye Admitting Clinician Unavailable Payers Payer Name Policy Type Policy Number Effective Date Expirati on Date Source [place] [id number] 2022 00:00:00 Problems Condition Name Condition Details Condition Category Status Onset Date Resolution Date Last Treatment Date Treating Clinician Comments Source Pain in right foot Pain in Right Foot Problem Active 7-13 00:00: 00 [facility] Body mass index 30+ - obesity Body Mass Index 30+ - Obesity Problem Active - 00:00: 00 [facility] Obesity Obesity Problem Active - 00:00: 00 [facility] U[facility] Essential hypertensi on Essential Hypertensi on Problem Active - 00:00: 00 [facility] Strain of hamstring muscle Strain of Hamstring Muscle Problem Active - 00:00: 00 [facility] Testostero ne level below reference range Testostero ne Level below Reference Range Problem Active 3-19 00:00: 00 [facility] Social History Smoking Status Start Date Stop Date Source Never Smoker [facility] U rology Medications Ordered Medication Name Filled Medication Name Start Date Stop Date Current Medication? Ordering Clinician Indication Dosage Frequency Signature (SIG) Comments Components Source omeprazole 40 mg capsule,del ayed release Take 1 capsule every day by oral route for 90 days. omeprazole 40 mg capsule,del ayed release Take 1 capsule every day by oral route for 90 days. 01-14 00:00: 00 No omeprazole 40 mg capsule,de layed release Take 1 capsule every day by oral route for 90 days. [facility] tadalafil 10 mg tablet Take 1 tablet every day by oral route for 90 days. tadalafil 10 mg tablet Take 1 tablet every day by oral route for 90 days. 01-14 00:00: 00 No tadalafil 10 mg tablet Take 1 tablet every day by oral route for 90 days. [facility] losartan 50 mg-hydrochl orothiazide 12.5 mg tablet Take 1 tablet every day by oral route in the morning for 90 days, for htn. losartan 50 mg-hydrochl orothiazide 12.5 mg tablet Take 1 tablet every day by oral route in the morning for 90 days, for htn. No losartan 50 mg-hydroch lorothiazi de 12.5 mg tablet Take 1 tablet every day by oral route in the morning for 90 days, for htn. [facility] minocycline 100 mg tablet minocycline 100 mg tablet No minocyclin e 100 mg tablet [facility] testosteron e cypionate 200 mg/mL intramuscul ar oil ADMINISTER 1 ML IN THE MUSCLE EVERY WEEK testosteron e cypionate 200 mg/mL intramuscul ar oil ADMINISTER 1 ML IN THE MUSCLE EVERY WEEK No testostero ne cypionate 200 mg/mL intramuscu lar oil ADMINISTER 1 ML IN THE MUSCLE EVERY WEEK [facility] valacyclovi r 1 gram tablet TAKE 1 TABLET BY MOUTH EVERY 12 HOURS FOR 10 DAYS valacyclovi r 1 gram tablet TAKE 1 TABLET BY MOUTH EVERY 12 HOURS FOR 10 DAYS No 1 Q12H valacyclov ir 1 gram tablet TAKE 1 TABLET BY MOUTH EVERY 12 HOURS FOR 10 DAYS [facility] losartan 50 mg-hydrochl orothiazide 12.5 mg tablet TAKE 1 TABLET BY MOUTH EVERY DAY IN THE MORNING FOR HIGH BLOOD PRESSURE losartan 50 mg-hydrochl orothiazide 12.5 mg tablet TAKE 1 TABLET BY MOUTH EVERY DAY IN THE MORNING FOR HIGH BLOOD PRESSURE No 1 Q1D losartan 50 mg-hydroch lorothiazi de 12.5 mg tablet TAKE 1 TABLET BY MOUTH EVERY DAY IN THE MORNING FOR HIGH BLOOD PRESSURE [facility] clindamycin 1 % topical gel Apply 1 application every day by topical route for 90 days. clindamycin 1 % topical gel Apply 1 application every day by topical route for 90 days. No 1applic ation(s ) Q1D clindamyci n 1 % topical gel Apply 1 applicatio n every day by topical route for 90 days. [facility] omeprazole 40 mg capsule,del ayed release Take 1 capsule every day by oral route for 90 days. omeprazole 40 mg capsule,del ayed release Take 1 capsule every day by oral route for 90 days. No 1capsul e(s) Q1D omeprazole 40 mg capsule,de layed release Take 1 capsule every day by oral route for 90 days. [facility] phentermine 37.5 mg tablet TAKE 1 TABLET BY MOUTH EVERY DAY phentermine 37.5 mg tablet TAKE 1 TABLET BY MOUTH EVERY DAY No phentermin e 37.5 mg tablet TAKE 1 TABLET BY MOUTH EVERY DAY [facility] tadalafil 10 mg tablet Take 1 tablet every day by oral route for 90 days. tadalafil 10 mg tablet Take 1 tablet every day by oral route for 90 days. No 1 Q1D tadalafil 10 mg tablet Take 1 tablet every day by oral route for 90 days. [facility] phentermine 37.5 mg tablet TAKE 1 TABLET BY MOUTH EVERY DAY phentermine 37.5 mg tablet TAKE 1 TABLET BY MOUTH EVERY DAY No phentermin e 37.5 mg tablet TAKE 1 TABLET BY MOUTH EVERY DAY [facility] acyclovir 5 % topical ointment APPLY TO THE AFFECTED AREA(S) BY TOPICAL ROUTE EVERY 3 HOURS 6 TIMES PER DAY acyclovir 5 % topical ointment APPLY TO THE AFFECTED AREA(S) BY TOPICAL ROUTE EVERY 3 HOURS 6 TIMES PER DAY No acyclovir 5 % topical ointment APPLY TO THE AFFECTED AREA(S) BY TOPICAL ROUTE EVERY 3 HOURS 6 TIMES PER DAY [facility] meloxicam 15 mg tablet Take 1 tablet every day by oral route as needed for 30 days, for cubital tunnel nerve pain. meloxicam 15 mg tablet Take 1 tablet every day by oral route as needed for 30 days, for cubital tunnel nerve pain. No 1 Q1D meloxicam 15 mg tablet Take 1 tablet every day by oral route as needed for 30 days, for cubital tunnel nerve pain. [facility] testosteron e cypionate 200 mg/mL intramuscul ar oil ADMINISTER 1 ML IN THE MUSCLE EVERY WEEK testosteron e cypionate 200 mg/mL intramuscul ar oil ADMINISTER 1 ML IN THE MUSCLE EVERY WEEK No testostero ne cypionate 200 mg/mL intramuscu lar oil ADMINISTER 1 ML IN THE MUSCLE EVERY WEEK [facility] Valtrex 500 mg tablet Valtrex 500 mg tablet No Valtrex 500 mg tablet [facility] acetaminoph en 300 mg-codeine 30 mg tablet Take 1 tablet every 6 hours by oral route as needed. acetaminoph en 300 mg-codeine 30 mg tablet Take 1 tablet every 6 hours by oral route as needed. No 1 Q6H acetaminop hen 300 mg-codeine 30 mg tablet Take 1 tablet every 6 hours by oral route as needed. [facility] minocycline 100 mg capsule Take 1 capsule every 12 hours by oral route for 10 days. minocycline 100 mg capsule Take 1 capsule every 12 hours by oral route for 10 days. No minocyclin e 100 mg capsule Take 1 capsule every 12 hours by oral route for 10 days. [facility] Immunizations Ordered Immunization Name Filled Immunization Name Date Status Comments Source influenza, injectable, quadrivalent, preservative free influenza, injectable, quadrivalent, preservative free Unknown Completed [facility] influenza, injectable, quadrivalent, preservative free influenza, injectable, quadrivalent, preservative free Unknown Completed [facility] Vital Signs Vital Name Observation Time Observation Value Comments S ource Height 2024-12-24 00:00:00 70 [in_i] [facility] BP Systolic 2024-12-24 00:00:00 152 mm[Hg] [facility] Body Weight 2024-12-24 00:00:00 3872 [oz_av] [facility] BMI (Body Mass Index) 2024-12-24 00:00:00 34.7 kg/m2 [facility] BP Diastolic 2024-12-24 00:00:00 94 mm[Hg] [facility] Height 2024-03-21 00:00:00 70 [in_i] [facility] Body Weight 2024-03-21 00:00:00 220 [lb_av] Edel [facility] BP Diastolic 2024-03-21 00:00:00 102 mm[Hg] Edel st[facility] BP Systolic 2024-03-21 00:00:00 144 mm[Hg] Jennifer gonzalez [facility] BMI (Body Mass Index) 2024-03-21 00:00:00 31.6 kg/m2 [facility] BP Diastolic 2024-01-15 00:00:00 92 mm[Hg] [facility] BMI (Body Mass Index) 2024-01-15 00:00:00 31.4 kg/m2 [facility] Body Weight 2024-01-15 00:00:00 3504 [oz_av] [facility] BP Systolic 2024-01-15 00:00:00 153 mm[Hg] [facility] Height 2024-01-15 00:00:00 70 [in_i] [facility] BP Diastolic 2023-10-16 00:00:00 118 mm[Hg] [facility] Height 2023-10-16 00:00:00 70 [in_i] [facility] Body Weight 2023-10-16 00:00:00 3640 [oz_av] [facility] BMI (Body Mass Index) 2023-10-16 00:00:00 32.6 kg/m2 [facility] BP Systolic 2023-10-16 00:00:00 154 mm[Hg] [facility] BP Diastolic 2023-03-29 00:00:00 88 mm[Hg] [facility] Height 2023-03-29 00:00:00 70 [in_i] [facility] BMI (Body Mass Index) 2023-03-29 00:00:00 33 kg/m2 [facility] BP Systolic 2023-03-29 00:00:00 127 mm[Hg] [facility] Body Weight 2023-03-29 00:00:00 3680 [oz_av] [facility] BP Diastolic 2022-12-14 00:00:00 93 mm[Hg] [facility] Height 2022-12-14 00:00:00 70 [in_i] [facility] BMI (Body Mass Index) 2022-12-14 00:00:00 32.1 kg/m2 [facility] BP Systolic 2022-12-14 00:00:00 140 mm[Hg] [facility] Body Weight 2022-12-14 00:00:00 3584 [oz_av] [facility] BP Diastolic 2022-10-06 00:00:00 87 mm[Hg] [facility] Height 2022-10-06 00:00:00 70 [in_i] [facility] BMI (Body Mass Index) 2022-10-06 00:00:00 32.1 kg/m2 [facility] BP Systolic 2022-10-06 00:00:00 129 mm[Hg] [facility] Body Weight 2022-10-06 00:00:00 3584 [oz_av] [facility] BP Diastolic 2022-09-26 00:00:00 109 mm[Hg] [facility] Height 2022-09-26 00:00:00 70 [in_i] [facility] BMI (Body Mass Index) 2022-09-26 00:00:00 32.2 kg/m2 [facility] BP Systolic 2022-09-26 00:00:00 182 mm[Hg] [facility] Body Weight 2022-09-26 00:00:00 3592 [oz_av] [facility] BP Diastolic 2022-09-12 00:00:00 88 mm[Hg] [facility] Height 2022-09-12 00:00:00 70 [in_i] [facility] BMI (Body Mass Index) 2022-09-12 00:00:00 32.7 kg/m2 [facility] BP Systolic 2022-09-12 00:00:00 148 mm[Hg] [facility] Body Weight 2022-09-12 00:00:00 3648 [oz_av] [facility] BP Diastolic 2022-08-28 00:00:00 117 mm[Hg] [facility] Height 2022-08-28 00:00:00 70 [in_i] [facility] BMI (Body Mass Index) 2022-08-28 00:00:00 32.3 kg/m2 [facility] BP Systolic 2022-08-28 00:00:00 198 mm[Hg] [facility] Body Weight 2022-08-28 00:00:00 3604 [oz_av] [facility] BP Diastolic 2021-12-12 00:00:00 105 mm[Hg] [facility] Height 2021-12-12 00:00:00 70 [in_i] [facility] BMI (Body Mass Index) 2021-12-12 00:00:00 32.6 kg/m2 [facility] BP Systolic 2021-12-12 00:00:00 159 mm[Hg] [facility] Body Weight 2021-12-12 00:00:00 3640 [oz_av] [facility] BP Diastolic 2020-07-20 00:00:00 80 mm[Hg] [facility] Height 2020-07-20 00:00:00 70 [in_i] [facility] BMI (Body Mass Index) 2020-07-20 00:00:00 32.4 kg/m2 [facility] BP Systolic 2020-07-20 00:00:00 136 mm[Hg] [facility] Body Weight 2020-07-20 00:00:00 226 [lb_av] [facility] BP Diastolic 2020-07-07 00:00:00 90 mm[Hg] [facility] Height 2020-07-07 00:00:00 70 [in_i] [facility] BMI (Body Mass Index) 2020-07-07 00:00:00 32.5 kg/m2 [facility] BP Systolic 2020-07-07 00:00:00 144 mm[Hg] [facility] Body Weight 2020-07-07 00:00:00 3621 [oz_av] [facility] BP Diastolic 2019-10-01 00:00:00 78 mm[Hg] [facility] Height 2019-10-01 00:00:00 70 [in_i] [facility] BMI (Body Mass Index) 2019-10-01 00:00:00 32.6 kg/m2 [facility] BP Systolic 2019-10-01 00:00:00 141 mm[Hg] [facility] Body Weight 2019-10-01 00:00:00 3638 [oz_av] [facility] BP Diastolic 2018-10-21 00:00:00 93 mm[Hg] [facility] Height 2018-10-21 00:00:00 70 [in_i] [facility] BMI (Body Mass Index) 2018-10-21 00:00:00 31.7 kg/m2 [facility] BP Systolic 2018-10-21 00:00:00 143 mm[Hg] [facility] Body Weight 2018-10-21 00:00:00 3539 [oz_av] [facility] Procedures Procedure Date / Time Performed Performing Clinician Source XR, foot, 3 or more view 2023-03-29 00:00:00 [facility] XR, chest 2019-10-01 00:00:00 [facility] 2010-09-17 [facility] 2002-09-17 00:00[facility]00 [facility] Repair of Meniscus [facility]rology Reconstruction of Anterior Cruciate Ligament of Knee Joint [facility] Repair of Lateral Collateral Ligament of Knee Joint [facility] Urology Encounters Start Date/Time End Date/Time Encounter Type Admission Type Attending Clinicians Care Facility Care Department Encounter ID Source 2024-12-24 00:00:00 2024-12-24 00:00:00 Capo Sotelo MD: [address], [place] [address] , Ph. MMG [facility] [id number] [place] [address] Medical Group 2024-04-29 00:00:00 2024-04-29 00:00:00 David Beck MD: [address] [place] [address] , [facility]. [facility] [id number] [facility] 2024-03-21 00:00:00 2024-03-21 00:00:00 David Beck MD: [address] [address] , [facility]. [facility] [place] [id number] [facility] 2024-01-15 00:00:00 2024-01-15 00:00:00 Capo Sotelo MD: [place] [address] , Ph. MMG [facility] [place] [facility] Practice [id number] [facility] 2023-10-16 00:00:00 2023-10-16 00:00:00 Outpatient Zuniga_F MMG MMG [id number] [facility] 2023-10-16 00:00:00 2023-10-16 00:00:00 Capo Sotelo MD: [address] [place] [address] , Ph. MMG [facility] [place] [facility] [id number] [facility] 2023-04-11 00:00:00 2023-04-11 00:00:00 Outpatient Hawkins_M MMG MM[facility] [id number] [facility] 2023-04-03 00:00:00 2023-04-03 00:00:00 Outpatient Hawkins_M MMG MMG [id number] [facility] 2023-03-29 16:59:00 2023-03-29 16:59:00 Outpatient ALIYA ABEBE [facility] [id number] [facility] 2023-03-29 00:00:00 2023-03-29 00:00:00 Outpatient Addison_Sergio [facility] [id number] [facility] 2023-03-29 00:00:00 2023-03-29 00:00:00 Aliya Brandt, ENGINEERING DRAWINGS CHECKER: [address], [address], [place] [address] , Ph. MMG [facility] [id number] [facility] 2023-03-13 00:00:00 2023-03-13 00:00:00 Outpatient Zuniga_F MMG MM[facility] [id number] [facility] 2023-02-06 00:00:00 2023-02-06 00:00:00 Outpatient Zuniga_F MMG MM[facility] [id number] [facility] 2023-01-17 00:00:00 2023-01-17 00:00:00 Outpatient Zuniga_F MMG MM[facility] [id number] [facility] 2023-01-02 00:00:00 2023-01-02 00:00:00 Outpatient Zuniga_F MMG MMG [id number] [facility] 2022-12-14 12:46:00 2022-12-14 12:46:00 Outpatient Capo Gonzalez [facility] [id number] [facility] 2022-12-14 00:00:00 2022-12-14 00:00:00 Capo Sotelo MD: [address], [address], [place] [address] , Ph. MMG [facility] [id number] [facility] 2022-12-13 00:00:00 2022-12-13 00:00:00 Outpatient Zuniga_F MMG [facility] [id number] [facility] 2022-12-13 00:00:00 2022-12-13 00:00:00 Outpatient Zuniga_F MMG MM[facility] [id number] [facility] 2022-10-06 00:00:00 2022-10-06 00:00:00 Outpatient Hawkins_M MMG MM[facility] [id number] [facility] 2022-10-06 00:00:00 2022-10-06 00:00:00 Aliya Brandt, ENGINEERING DRAWINGS CHECKER: [address], [place] [address] , [facility] [id number] [facility] 2022-09-26 00:00:00 2022-09-26 00:00:00 Outpatient Hawkins_M MMG MMG [id number] [facility] 2022-09-26 00:00:00 2022-09-26 00:00:00 Aliya Brandt, ENGINEERING DRAWINGS CHECKER: [address], [place] [address] , Ph. MMG [facility] [id number] [facility] 2022-09-20 00:00:00 2022-09-20 00:00:00 Outpatient Hawkins_M MMG MM[facility] [id number] [facility] 2022-09-20 00:00:00 2022-09-20 00:00:00 Outpatient Hawkins_M MMG MM[facility] [id number] [facility] 2022-09-12 00:00:00 2022-09-12 00:00:00 Outpatient Hawkins_M MMG MM[facility] [id number] [facility] 2022-09-12 00:00:00 2022-09-12 00:00:00 Aliya Brandt, ENGINEERING DRAWINGS CHECKER: [address] [facility] [address], [place] [address] , [facility]. [facility] [id number] [facility] 2022-09-06 00:00:00 2022-09-06 00:00:00 Outpatient Hawkins_M MMG MM[facility] [id number] [facility] 2022-08-28 00:00:00 2022-08-28 00:00:00 Outpatient Hawkins_M MMG MMG [id number] [facility] 2022-08-28 00:00:00 2022-08-28 00:00:00 Aliya Brandt, ENGINEERING DRAWINGS CHECKER: [address], [place] [address] , Ph. MMG [facility] [id number] [facility] 2022-03-16 01:05:00 2022-03-16 01:05:00 Outpatient Zuniga_F MMG MMG [id number] [facility] 2022-02-08 04:08:00 2022-02-08 04:08:00 Outpatient Zuniga_F MMG MMG [id number] [facility] 2022-01-12 02:26:00 2022-01-12 02:26:00 Outpatient Zuniga_F MMG MMG [id number] [facility] 2022-01-04 03:36:00 2022-01-04 03:36:00 Outpatient Zuniga_F MMG MMG [id number] [facility] 2021-12-12 12:27:00 2021-12-12 12:27:00 Outpatient Capo Gonzalez [facility] [id number] [facility] 2021-12-12 00:00:00 2021-12-12 00:00:00 Capo Sotelo MD: [address], [place] [address] , Ph. Zuniga_F MMG [facility] [id number] [facility] 2021-11-16 03:37:00 2021-11-16 03:37:00 Outpatient Zuniga_F MMG MMG [id number] [facility] 2020-08-04 02:21:00 2020-08-04 02:21:00 Outpatient Zuniga_F MMG MMG [id number] [facility] 2020-07-21 11:48:00 2020-07-21 11:48:00 Outpatient Zuniga_F MMG MMG [id number] [facility] 2020-07-20 00:00:00 2020-07-20 00:00:00 Felipe Marie MD: [address] [id number] , Ph. [phone] Zuniga_F MMG [facility] 103 [facility] 2020-07-07 11:04:00 2020-07-07 11:04:00 Outpatient Capo Gonzalez [facility] [id number] [facility] 2020-07-07 00:00:00 2020-07-07 00:00:00 Capo Sotelo MD: [address], [place] [address] , Ph. Zuniga_F MMG [facility] 021 [facility] 2020-07-01 06:45:00 2020-07-01 06:45:00 Outpatient Zuniga_F MMG MMG [id number] [facility] 2019-10-01 15:24:00 2019-10-01 15:24:00 Outpatient Capo Gonzalez [facility] [id number] [facility] 2019-10-01 00:00:00 2019-10-01 00:00:00 Capo Sotelo MD: [address], [place] [address] , Ph. Zuniga_F MMG [facility] 115 [facility] 2018-10-21 12:01:00 2018-10-21 12:01:00 Outpatient Capo Gonzalez [facility] [id number] [facility] 2018-10-21 00:00:00 2018-10-21 00:00:00 Capo Sotelo MD: [address], [address], [place] [address] , Ph. [facility] 204 [facility] 2014-04-30 11:37:00 2014-04-30 11:37:00 Outpatient Nj Hyde [facility] [id number] [facility] Results Test Description Test Time Test Comments Results Result Co mments Source [facility], method unspecified - [id number] 09:08:00NeutrophilsBandLymphocyteAtypical LymphMonocyteBasophilPlatelet EstimatePlatelet MorphologyMacrocytosisMerit Health Woman'S HospitalComprehensive metabolic 2000 panel - Serum or [id number] 09:08:00* Test Item Value Reference Range Interpretation Comme nts glucose (test code = glucose) 91 mg/dL 74-106 Urea nitrogen [Mass/volume] in Serum or Plasma (test code = 3094-0) 22 mg/dL 6-20 H osmolality calculated,serum (test code = osmolality calculated,serum) 281 mOsm/kg 280-300 creatinine (test code = creatinine) 1.3 mg/dL 0.70-1.20 H glomerular filtration rate ( test code = glomerular filtration rate) >60.00 Urea nitrogen/Creatinine [Ma ss Ratio] in Serum or Plasma (test code = 3097-3) 16.9 12-20 sodium level (test code = so dium level) 139 mmol/L 135-145 Potassium [Moles/volume] in Body fluid (test code = 2821-7) 3.8 mmol/L 3.5-5.2 chloride level (test code = chloride level) 102 mmol/L 98-108 CO2 (test code = CO2) 25 mmol/L 21-32 anion gap (test code = anion gap) 15.8 mEq/L 12-20 calcium level (test code = calcium level) 9.7 mg/dL 8.6-10.0 total protein (test code = t otal protein) 7.6 g/dL 6.6-8.7 albumin (test code = albumin) 4.6 g/dL 3.5-5.2 globulin (test code = globulin) 3.0 gm/dL A/G ratio (test code = A/G ratio) 1.5 >1.0 bilirubin,total (test code = bilirubin,total) 0.9 mg/dL 0.0-1.2 AST/SGOT (test code = AST/SGOT) 25 U/L 15-40 Alanine aminotransferase [Enzymatic activity/volume] in Serum or Plasma (test code = 1742-6) 32 U/L 0-41 Alkaline phosphatase [Enzyma tic activity/volume] in Serum or Plasma (test code = 6768-6) 72 U/L 40-130 [facility] panel - Serum or [id number] 09:08:00* Test Item Value Reference Range Interpretation Comme nts cholesterol level (test code = cholesterol level) 218 mg/dL 150-200 H triglycerides level (test co de = triglycerides level) 72 mg/dL <150 HDL cholesterol (test code = HDL cholesterol) 52 mg/dL >55 L LDL cholesterol direct (test code = LDL cholesterol direct) 156 mg/dL <100 H cholesterol risk ratio (test code = cholesterol risk ratio) 4.192 [facility]] [facility] Serum or [id number] 09:08:00* Test Item Value Reference Range Interpretation Comme nts Thyrotropin [Units/volume] i n Serum or Plasma (test code = 3016-3) 1.99 uIU/mL 0.36-3.74 [facility] [Mass/volume] in Serum or [id number] 09:08:00* Test Item Value Reference Range Interpretation Comme nts testosterone (test code = testosterone) 125.7 NG/dL [phone] L [facility]
[2025-01-18] MEDS ORDERED: KETOROLAC 30 MG/ML INJ ONE (15:26)
[2025-01-18 15:41] LABS: Absolute Basophils 0.1 K/uL (0-0.5); Absolute Lymphocytes (CBC) 1.1 K/uL (0.7-4.9); Absolute Monocytes 0.5 K/uL (0.1-1.3); Absolute Neutrophil 6.5 K/uL (1.8-8.0); Basophils % 1.2 % (0-1.3); Eosinophils % 0.6 % (0-4.4); Hematocrit 47.2 % (39.6-49.0); Hemoglobin 16.4 g/dL (13.6-17.9); Lymphocytes % 13.4 % (15.3-44.8); MCH 29.9 pg (27.0-35.0); MCHC 34.9 g/dL (32.0-36.0); MCV 85.8 fL (80-100); MPV 7.4 fL (7.6-11.3); Monocytes % 6.5 % (3.3-12.3); Neutrophils % 78.3 % (41.7-73.7); Nucleated Red Blood Cells % 0.1 % (0-0); Platelets 269 thou/uL (152-406); Red Cell Distribution Width 13.2 % (12.1-15.2)
--- NOTE | 2025-01-18 15:48 | RAD REPORT ---
EXAMINATION: XR LEFT KNEE CLINICAL INDICATION: PAIN TECHNIQUE: Multiple projections of the left knee were obtained. COMPARISON: No prior exam. FINDINGS: Patella juan manuel is seen. Thickening of the patellar tendon is present. No acute fracture or di slocation. No significant intra-articular joint effusion.
[2025-01-18 15:59] LABS: Albumin 3.9 g/dL (3.4-5.0); Albumin/Globulin Ratio 1.1 (1.1-1.8); Anion Gap 8.7 mEq/L (5.0-15.0); Bilirubin Total 0.7 mg/dL (0.2-1.0); Globulin 3.6 g/dL (2.3-3.5); Potassium 3.7 mEq/L (3.5-5.1); Protein, Total 7.5 g/dL (6.4-8.2)
--- NOTE | 2025-01-18 16:02 | RAD REPORT ---
EXAM: CT LEFT knee without contrast CLINICAL INDICATION: pain. pain TECHNIQUE: CT of the LEFT knee was performed without contrast. Axial, sagittal, and coronal reconstr ucted images. This exam was performed according to our departmental dose-optimization program, which includes automated exposure control, adjustment of the mA and/or kV according to patient size a nd/or use of iterative reconstruction technique. COMPARISON: Recent plain radiograph FINDINGS: There is no evidence of an acute fracture or dislocation. There is likely a full-thickness tear of th e proximal patellar tendon from the inferior margin of the patella. A gap of 6 mm is noted. Small joint effusion. No soft tissue mass or hematoma. Soft tissue swelling is seen anteriorly. Small Welch's cyst. IMPRESSION: There is likely a full-thickness tear of the proximal patellar tendon. MRI left knee follow-up would be recommended for confirmation and assessment for additional internal derangement.
--- NOTE | 2025-01-18 16:32 | ER ---
Nurse's Notes [facility] Name: Reggie Anton Age: 39 yrs Sex: Male : 1985 Arrival Date: 01/18/2025 Time: 15:07 Bed 2 Private MD: Diagnosis: Pain in left knee-torn left patellar tendon Presentation: 01/18 15:22 Chief complaint: Patient states: L knee pain and deformity happened while playing ll1 basketball 40 min [employer]. EMS states: HR elevated. 18 G R AC, Zofran 4 mg IV and fentanyl 100 mcg IV given. Coronavirus screen: Client denies travel out of the [place] in the last 14 days. At this time, the client does not indicate any symptoms associated with coronavirus-19. Ebola Screen: Patient denies travel to an Ebola-affected area in the 21 days before illness onset. Initial Sepsis Screen: Does the patient meet any 2 criteria? No. Patient's initial sepsis screen is negative. Does the patient have a suspected source of infection? No. Patient's initial sepsis screen is negative. Risk Assessment: Do you want to hurt yourself or someone else? Patient reports no desire to harm self or others. Onset of symptoms was January 18, 2025. 15:22 Method Of Arrival: EMS: [place] [id number] 15:22 Acuity: KAMRAN 3 ll1 Triage Assessment: 15:24 General: Appears uncomfortable, Behavior is calm, cooperative, appropriate for age. ll1 Pain: Complains of pain in L knee Quality of pain is described as aching. Musculoskeletal: Bony deformity noted of L knee Reports. Historical: - Allergies: 15:21 No Known Allergies; ll1 - PMHx: 15:21 Hypertensive disorder; ll1 - PSHx: 15:21 ACL repair; ll1 - Immunization history:: Adult Immunizations up to date. - Infectious Disease History:: Denies. - Social history:: Smoking status: Patient denies any tobacco usage or history of. - Family history:: not pertinent. Screenin:00 [facility] ED Fall Risk Assessment (Adult) History of falling in the last 3 months, cm10 including since admission Yes- single mechanical fall (1 pt) Confusion or Disorientation No (0 pts) Intoxicated or Sedated No (0 pts) Impaired Gait Yes (1 pt) Mobility Assist Device Used Yes (1 pt) Altered Elimination No (0 pt) Score/Fall Risk Level 3 or more points = High Risk Oriented to surroundings, Maintained a safe environment, Hourly rounding (assess needs \T\ fall precautionary measures) done. Abuse screen: Denies threats or abuse. Denies injuries from another. Nutritional screening: No deficits noted. Tuberculosis screening: No symptoms or risk factors identified. Assessment: 15:31 Reassessment: No changes from previously documented assessment. Patient and/or family ll1 updated on plan of care and expected duration. Pain level reassessed. Patient is alert, oriented x 3, equal unlabored respirations, skin warm/dry/pink. 15:55 General: Appears in no apparent distress. Behavior is calm, cooperative. Pain: mb9 Complains of pain in left knee Pain does not radiate. Pain currently is 0 out of 10 on a pain scale. Quality of pain is described as throbbing, Pain began suddenly. Neuro: Hobson Agitation-Sedation Scale (RASS): 0 - Alert and Calm Level of Consciousness is awake, alert, obeys commands, Oriented to person, place, time, situation, Appropriate for age. Cardiovascular: Patient's skin is warm and dry. GI: Patient currently denies nausea. : No signs and/or symptoms were reported regarding the genitourinary system. EENT: No signs and/or symptoms were reported regarding the EENT system. Derm: Skin is pink, warm \T\ dry. Musculoskeletal: Range of motion: limited in left knee. Vital Signs: 15:22 BP 152 / 98; Pulse 103; Resp 18; Temp 98.7; Pulse Ox 93% on R/A; Weight 106.59 kg; ll1 Height 5 ft. 10 in. ; Pain 2/10; 15:56 BP 151 / 93; Pulse 88; Resp 18; Pulse Ox 95% on R/A; mb9 17:00 BP 153 / 100; Pulse 88; Resp 15; Pulse Ox 95% ; cm10 15:22 Body Mass Index 33.72 (106.59 kg, 177.8 cm) ll1 15:22 Pain Scale: Adult ll1 ED Course: 15:12 Patient arrived in ED. em1 15:16 Jude Leyva MD is Attending Physician. rob 15:20 Arm band placed on Patient placed in an exam room, on a stretcher. ll1 15:24 Triage completed. ll1 15:31 Comprehensive Metabolic Panel Sent. ll1 15:31 CBC with Diff Sent. ll1 15:45 Knee Left 3 View XRAY In Process Unspecified. EDMS 15:50 Knee Left Wo Con In Process Unspecified. EDMS 15:55 Tanja Astorga RN is Primary Nurse. mb9 16:09 Uzair Martin MD is Referral Physician. [facility] 17:00 Patient has correct armband on for positive identification. Bed in low position. Call cm10 light in reach. 17:00 Crutch training done. Knee immobilizer applied on left knee. cm10 17:40 Provided Education on: Follow-up instructions. cm10 17:42 No provider procedures requiring assistance completed. IV discontinued, intact, cm10 bleeding controlled, No redness/swelling at site. Pressure dressing applied. Administered Medications: 15:25 Drug: NS 0.9% IV 1000 ml IV at 1 bolus Per protocol; to be given as a bolus over 60 ll1 minutes Route: IV; Rate: 1 bolus; Site: right antecubital; 17:36 Follow up: Response: No adverse reaction; IV Status: Completed infusion; IV Intake: cm10 500ml 15:31 Drug: Ketorolac IVP 30 mg IVP once {Note: pain 2/10.} Route: IVP; Site: right ll1 antecubital; 17:37 Follow up: Response: No adverse reaction cm10 17:36 Not Given (Patient Refused): ondansetron 4 mg IVP once; over 2 minutes cm10 17:36 Not Given (Patient Refused): morphineor iv 4 mg IVP once over 4 mins cm10 Medication: 17:42 VIS not applicable for this client. cm10 Intake: 17:36 IV: 500ml; Total: 500ml. cm10 Outcome: 16:32 Discharge ordered by . [facility] 17:41 Discharged to home with crutches, with significant other, cm10 17:41 Condition: good 17:41 Discharge instructions given to patient, Instructed on discharge instructions, follow up and referral plans. medication usage, crutch walking, Demonstrated understanding of instructions, follow-up care, medications, crutch walking, Prescriptions given X 3, 17:43 Patient left the ED. cm10 Signatures: Dispatcher [employer] Jude Patel MD MD cha Martinez, Eric emPeri Gonzalez, RN RN ll1 Rizwan, Tanja Cantu, RN RN mb9 Grabiel, HANNAH Aguilera RN cm10
--- NOTE | 2025-01-18 16:32 | EDPHYS ---
Physician Documentation [facility] Name: Reggie Anton Age: 39 yrs Sex: Male : 1985 Arrival Date: 01/18/2025 Time: 15:07 Bed 2 Private MD: ED Physician Jude Leyva HPI: 01/18 16:03 This 39 yrs old Male presents to ER via EMS with complaints of knee pain. rob 16:03 The patient presents with decreased range of motion, a deformity, pain. The complaints rob affect the left knee. Context: resulted from playing sports, basketball, the patient can fully bear weight. Modifying factors: The symptoms are alleviated by elevating leg, remaining still, the symptoms are aggravated by movement, bending knee. Associated signs and symptoms: The patient has no apparent associated signs or symptoms. Severity of symptoms: At their worst the symptoms were moderate, in the emergency department the symptoms are unchanged. The patient has not experienced similar symptoms in the past. Historical: - Allergies: 15:21 No Known Allergies; ll1 - PMHx: 15:21 Hypertensive disorder; ll1 - PSHx: 15:21 ACL repair; ll1 - Immunization history:: Adult Immunizations up to date. - Infectious Disease History:: Denies. - Social history:: Smoking status: Patient denies any tobacco usage or history of. - Family history:: not pertinent. ROS: 16:03 Constitutional: Negative for fever, chills, and weight loss, Eyes: Negative for injury, rob pain, redness, and discharge, ENT: Negative for injury, pain, and discharge, Neck: Negative for injury, pain, and swelling, Cardiovascular: Negative for chest pain, palpitations, and edema, Respiratory: Negative for shortness of breath, cough, wheezing, and pleuritic chest pain, Abdomen/GI: Negative for abdominal pain, nausea, vomiting, diarrhea, and constipation, Back: Negative for injury and pain, : Negative for injury, bleeding, discharge, and swelling, Skin: Negative for injury, rash, and discoloration, Neuro: Negative for headache, weakness, numbness, tingling, and seizure, Psych: Negative for depression, anxiety, suicide ideation, homicidal ideation, and hallucinations, Allergy/Immunology: Negative for hives, rash, and allergies, Endocrine: Negative for neck swelling, polydipsia, polyuria, polyphagia, and marked weight changes, Hematologic/Lymphatic: Negative for swollen nodes, abnormal bleeding, and unusual bruising, 16:03 MS/extremity: Positive for decreased range of motion, pain, tenderness, of the left knee, Exam: 16:03 Constitutional: This is a well developed, well nourished patient who is awake, alert, rob and in no acute distress. Head/Face: Normocephalic, atraumatic. Eyes: Pupils equal round and reactive to light, extra-ocular motions intact. Lids and lashes normal. Conjunctiva and sclera are non-icteric and not injected. Cornea within normal limits. Periorbital areas with no swelling, redness, or edema. ENT: Nares patent. No nasal discharge, no septal abnormalities noted. Tympanic membranes are normal and external auditory canals are clear. Oropharynx with no redness, swelling, or masses, exudates, or evidence of obstruction, uvula midline. Mucous membranes moist. Neck: Trachea midline, no thyromegaly or masses palpated, and no cervical lymphadenopathy. Supple, full range of motion without nuchal rigidity, or vertebral point tenderness. No Meningismus. Chest/axilla: Normal chest wall appearance and motion. Nontender with no deformity. No lesions are appreciated. Cardiovascular: Regular rate and rhythm with a normal S1 and S2. No gallops, murmurs, or rubs. Normal PMI, no JVD. No pulse deficits. Respiratory: Lungs have equal breath sounds bilaterally, clear to auscultation and percussion. No rales, rhonchi or wheezes noted. No increased work of breathing, no retractions or nasal flaring. Abdomen/GI: Soft, non-tender, with normal bowel sounds. No distension or tympany. No guarding or rebound. No evidence of tenderness throughout. Back: No spinal tenderness. No costovertebral tenderness. Full range of motion. Male : Normal genitalia with no discharge or lesions. Skin: Warm, dry with normal turgor. Normal color with no rashes, no lesions, and no evidence of cellulitis. Neuro: Awake and alert, GCS 15, oriented to person, place, time, and situation. Cranial nerves II-XII grossly intact. Motor strength 5/5 in all extremities. Sensory grossly intact. Cerebellar exam normal. Normal gait. Psych: Awake, alert, with orientation to person, place and time. Behavior, mood, and affect are within normal limits. 16:03 Musculoskeletal/extremity: ROM: limited active range of motion, limited passive range of motion, in the left leg, Circulation is intact in all extremities. Sensation intact. Compartment Syndrome exam of affected extremity: is normal. Weight bearing: able to fully bear weight, pain, DVT Exam: pain, tenderness, that is moderate, of the left leg, of the left knee, 16:03 Neuro: Orientation: is normal, appropriate for stated age, no acute changes, Mentation: is normal, appropriate for stated age, no acute changes, Memory: is normal, Sensation: is normal, Vital Signs: 15:22 BP 152 / 98; Pulse 103; Resp 18; Temp 98.7; Pulse Ox 93% on R/A; Weight 106.59 kg; ll1 Height 5 ft. 10 in. ; Pain 2/10; 15:56 BP 151 / 93; Pulse 88; Resp 18; Pulse Ox 95% on R/A; mb9 17:00 BP 153 / 100; Pulse 88; Resp 15; Pulse Ox 95% ; cm10 15:22 Body Mass Index 33.72 (106.59 kg, 177.8 cm) ll1 15:22 Pain Scale: Adult ll1 MDM: 15:16 Medical Screening Exam initiated rob 16:06 Differential diagnosis: dislocation, closed fracture, contusion, abrasion, tendonitis. [facility] Data reviewed: vital signs, nurses notes, lab test result(s), radiologic studies, CT scan, plain films. Consideration of Admission/Observation Escalation of care including admission/observation considered. I considered the following discharge prescriptions or medication management in the emergency department Medications were administered in the Emergency Department. See MAR. Independent interpretation of the following test(s) in the Emergency Department CT Scan: My interpretation is left knee. Test considered but Not performed: Ultrasound no usg. Historians other than the Patient: EMS: ems well informed. Care significantly affected by the following chronic conditions: Hypertension. 01/18 15:21 Order name: CBC with Diff; Complete Time: 16:03 [facility] 01/18 15:21 Order name: Comprehensive Metabolic Panel; Complete Time: 16:03 [facility] 01/18 15:21 Order name: Knee Left 3 View XRAY; Complete Time: 16:03 [facility] 01/18 15:32 Order name: Knee Left Wo Con EDMS 01/18 15:21 Order name: Knee Immobilizer; Complete Time: 17:36 rob 01/18 16:03 Order name: Crutches; Complete Time: 17:36 rob Administered Medications: 15:25 Drug: NS 0.9% IV 1000 ml IV at 1 bolus Per protocol; to be given as a bolus over 60 ll1 minutes Route: IV; Rate: 1 bolus; Site: right antecubital; 17:36 Follow up: Response: No adverse reaction; IV Status: Completed infusion; IV Intake: cm10 500ml 15:31 Drug: Ketorolac IVP 30 mg IVP once {Note: pain 10.} Route: IVP; Site: right ll1 antecubital; 17:37 Follow up: Response: No adverse reaction cm10 17:36 Not Given (Patient Refused): ondansetron 4 mg IVP once; over 2 minutes cm10 17:36 Not Given (Patient Refused): morphineor iv 4 mg IVP once over 4 mins cm10 Disposition Summary: 01/18/25 16:32 Discharge Ordered Notes: Location: Home rob Problem: new rob Symptoms: are unchanged rob Condition: Stable rob Diagnosis - Pain in left knee - torn left patellar tendon rob Followup: rob - With: Private Physician - When: 2 - 3 days - Reason: Recheck today's complaints, Continuance of care, Re-evaluation by your physician Followup: rob - With: Uzair Martin MD - When: 2 - 3 days - Reason: Recheck today's complaints, Continuance of care, Re-evaluation by your physician Discharge Instructions: - Discharge Summary Sheet rob - Joint Pain rob - How to Use a Knee Brace rob - Musculoskeletal Pain rob - Tendon Repair rob - Patellar Tendon Tear rob Forms: - Medication Reconciliation Form rob - Antibiotic Education rob - Prescription Opioid Use rob - Patient Portal Instructions [facility] - Leadership Thank You Letter [facility] Prescriptions: - Valium 5 mg Oral Tablet - take 1 tablet ORAL route every 8 hours As needed; 20 tablet; Refills: 0, rob Product Selection Permitted - Diclofenac Sodium 75 mg Oral tablet, delayed release (enteric coated) - take 1 tablet ORAL route 2 times per day; 20 tablet; Refills: 0, Product rob Selection Permitted - Tylenol-Codeine #3 300mg-30mg Oral tablet - take 2 tablets ORAL route every 6 hours As needed; 20 tablet; Refills: 0, rob Product Selection Permitted Signatures: Dispatcher [employer] EDMS Jude Leyva MD MD cha Lewis, Lynsay RN RN ll1 Ale Spain RN RN cm10 Corrections: (The following items were deleted from the chart) 15:21 15:21 CBC+H.LAB.BRZ ordered. EDMS EDMS 15: 15:21 COMPREHENSIVE METABOLIC PANEL+C.LAB.BRZ ordered. EDMS EDMS 15: 15:21 Knee Left 3 View+RAD.RAD.BRZ ordered. EDMS EDMS 15:32 15:24 CT LEFT KNEE WO CONTRAST ordered. EDMS EDMS
[2025-01-18] MEDS ORDERED: ONDANSETRON 4 MG/2 ML VIAL ONE (16:54)
[2025-01-18] MEDS ORDERED: MORPHINE 4 MG/ML SYR ONE (16:54)
[2025-01-18 17:48] VITALS: TEMP 98.7
[2025-01-18 17:49] VITALS: O2SAT 95
[2025-01-18 17:52] VITALS: BP 153/100
== END 2025-01-18 17:43 | disposition home or self-care (01) ==
LOC: ER 15:07
DX: S76.112A Strain of left quadriceps muscle, fascia and tendon, initial encounter (principal)
CPT/HCPCS: 36415; 73700; 80053; 85025; 96361; 96374; 99284; J2405